=== PATIENT | male | born 1970 | race African-American/Black ===

== ENCOUNTER 2017-10-04 09:52 | Inpatient (IN) | payer OTHER ==
[2017-10-04 10:21] VITALS: BMI 26.6
--- NOTE | 2017-10-04 14:28 | HP ---
CIWA Score - CIWA Score Nausea/Vomitin-No Nausea/No Vomiting Muscle Tremors: 4-Moderate,w/Arms Extend Anxiety: 4-Mod. Anxious/Guarded Agitation: 3 Paroxysmal Sweats: 1-Minimal Palms Moist Orientation: 0-Oriented Tacttile Disturbances: 3-Moderate Itch/Numb/Burn Auditory Disturbances: 0-None Visual Disturbances: 0-None Headache: 1-Very Mild CIWA-Ar Total Score: 16 Admission ROS BHS - HPI Chief Complaint: WITHDRAWAL SX FROM ALCOHOL Allergies/Adverse Reactions: Allergies Allergy/AdvReac Type Severity Reaction Status Date / Time No Known Allergies Allergy Verified 10/04/17 13:27 History of Present Illness: 47 Y/O AA/MALE WITH A HX OF ALCOHOL AND COCAINE DEPENDENCE SEEKING DETOX TX. PT WAS LAST HERE IN 2009. REPORTS HAVE BEEN SOBER FOR 7 YEARS SINCE THEN AND RECENTLY RELAPSED. Exam Limitations: No Limitations - Ebola screening Have you traveled outside of the country in the last 21 days: No Have you had contact with anyone from an Ebola affected area: No Have you been sick,other than usual withdrawal symptoms: No Do you have a fever: No - Review of Systems Constitutional: Chills, Night Sweats, Changes in sleep EENT: reports: Blurred Vision (WEARS GLASSES), Tearing, Nose Congestion, Dental Problems (MISSING TEETH/BILATERAL DENTURES), Other ("SLIGHTLY GLAUCOMA BOTH EYES ".) Respiratory: reports: Shortness of Breath (ASTHMA), Wheezing Cardiac: reports: Lightheadedness, Palpitations GI: reports: Diarrhea, Nausea, Poor Fluid Intake, Vomiting, Abdominal cramping : reports: Frequency Musculoskeletal: reports: Back Pain, Joint Pain, Muscle Pain Integumentary: reports: No Symptoms Reported Neuro: reports: Headache, Numbness (TOES), Tremors, Unsteady Gait, Dizziness Endocrine: reports: No Symptoms Reported Hematology: reports: No Symptoms Reported Psychiatric: reports: Orientated x3, Anxious, Depressed Other Systems: Reviewed and Negative Patient History - Patient Medical History Hx Asthma: Yes (MDI) Hx Chronic Obstructive Pulmonary Disease (COPD): No Hx Cardiac Disorders: No Hx Hypertension: No Hx Hypercholesterolemia: No HX Cerebrovascular Accident: No Hx Seizures: No Hx Diabetes: No Hx Gastrointestinal Disorders: Yes (acid reflux-MAALOX) Hx Genitourinary Disorders: No Hx Sexually Transmitted Disorders: No (DENIES) Hx Renal Disease (ESRD): No Hx Thyroid Disease: No Hx Human Immunodeficiency Virus (HIV): No (NEGATIVE HX) Hx Hepatitis C: No Hx Depression: Yes (ON MEDS) Hx Suicide Attempt: No (DENIES PREVIOUS OR CURRENT S/H/I TODAY.) Hx Bipolar Disorder: No Hx Schizophrenia: No - Patient Surgical History Past Surgical History: Yes Hx Neurologic Surgery: No Hx Cataract Extraction: No Hx Cardiac Surgery: No Hx Lung Surgery: No Hx Breast Surgery: No Hx Breast Biopsy: No Hx Abdominal Surgery: No Hx Appendectomy: No Hx Cholecystectomy: No Hx Genitourinary Surgery: No Hx Orthopedic Surgery: No Other Surgical History: benign tumor removed for the chest Anesthesia Reaction: No - PPD History Previous Implant?: Yes Documented Results: Negative w/o proof Implanted On Prior R Admission?: No PPD to be Administered?: Yes - Reproductive History Patient is a Female of Child Bearing Age (11 -55 yrs old): No (MALE) - Smoking Cessation Smoking history: Current every day smoker Have you smoked in the past 12 months: Yes Aproximately how many cigarettes per day: 20 Hx Chewing Tobacco Use: No Initiated information on smoking cessation: Yes 'Breaking Loose' booklet given: 10/04/17 - Substance & Tx. History Hx Alcohol Use: Yes (VODKA/BEER) Hx Substance Use: Yes (CRACK) Substance Use Type: Alcohol, Cocaine Hx Substance Use Treatment: Yes (LAST TX AT [facility] ) - Substances Abused Crack Route: Smoking Frequency: Daily Amount used: $100 Age of first use: 21 Date of Last Use: 10/03/17 Alcohol-vodka/beer Route: Oral Frequency: Daily Amount used: 3 pts./2-6 pks. Age of first use: 14 Date of Last Use: 10/03/17 Family Disease History - Family Disease History Family Disease History: Diabetes: Mother (), Other: Grandparent ( ), Father () Admission Physical Exam BHS - Vital Signs Vital Signs: Vital Signs - 24 hr 10/04/17 10:20 Temperature 97.2 F L Pulse Rate 99 H Respiratory 18 Rate Blood Pressure 120/78 - Physical General Appearance: Yes: Moderate Distress, Irritable, Anxious HEENTM: Yes: EOMI, Normocephalic, VALERIE, Pharynx Normal Respiratory: Yes: Chest Non-Tender, Lungs Clear, Normal Breath Sounds, No Respiratory Distress Neck: Yes: No masses,lesions,Nodules, Supple, Trachea in good position Breast: Yes: Breast Exam Deferred Cardiology: Yes: Regular Rhythm, Regular Rate, S1, S2 Abdominal: Yes: Normal Bowel Sounds, Non Tender, Flat, Soft Genitourinary: Yes: Other (N/C) Back: Yes: Within Normal Limits Musculoskeletal: Yes: full range of Motion, Gait Steady Extremities: Yes: Normal Range of Motion, Non-Tender Neurological: Yes: conveyor feeder II-XII NML intact, Fully Oriented, Alert, Motor Strength 5/5 Integumentary: Yes: Dry, Warm Lymphatic: Yes: Within Normal Limits - Diagnostic (1) Alcohol dependence with uncomplicated withdrawal Current Visit: Yes Status: Acute (2) Cocaine dependence, uncomplicated Current Visit: Yes Status: Acute (3) Asthma Current Visit: Yes Status: Chronic Qualifiers: Asthma severity: mild Asthma persistence: unspecified Asthma complication type: uncomplicated Qualified Code(s): J45.909 - Unspecified asthma, uncomplicated Cleared for Admission [facility] - Detox or Rehab [facility] Level of Care: Medically Managed Detox Regimen/Protocol: Librium [facility] Breath Alcohol Content Breath Alcohol Content: 0 Urine Drug Screen - Results Drug Screen Negative: No Urine Drug Screen Results: ARTEMIO-Cocaine
[2017-10-04] MEDS ORDERED: ACETAMINOPHEN 325 MG TABLET (FP) PO PRN (14:41)
[2017-10-04] MEDS ORDERED: LOPERAMIDE HCL 2 MG CAPSULE PO PRN (14:41)
[2017-10-04] MEDS ORDERED: MAGNESIUM CITRATE 300 ML BOTTLE PO PRN (14:41)
[2017-10-04] MEDS ORDERED: guaiFENesin/D-METHORPHAN HB 10 ML UNIT-DOSE CUPS PO PRN (14:41)
[2017-10-04] MEDS ORDERED: P-EPHED 60MG/TRIPROLIDI 2.5MG TABLET PO PRN (14:41)
[2017-10-04] MEDS ORDERED: IBUPROFEN 400 MG TABLET (FP) PO PRN (14:41)
[2017-10-04] MEDS ORDERED: hydrOXYzine PAMOATE 50 MG CAPSULE (FP) PO PRN (14:41)
[2017-10-04] MEDS ORDERED: MAG HYDROX/AL HYDROX/SIMETH 30 ML UNIT-DOSE CUP PO PRN (14:41)
[2017-10-04] MEDS ORDERED: MAGNESIUM HYDROX 2400MG/30ML ORAL SUSPENSION 30 ML CUP PO PRN (14:41)
[2017-10-04] MEDS ORDERED: MENTHOL/PHENOL 1 EACH UD MM PRN (14:41)
[2017-10-04] MEDS ORDERED: chlordiazePOXIDE HCL 25 MG CAPSULE PO PRN (14:41)
[2017-10-04] MEDS ORDERED: ALBUTEROL SO4 18 GM HFA INHALER IH PRN (14:44)
[2017-10-04] MEDS ORDERED: chlordiazePOXIDE HCL 25 MG CAPSULE PO ONE (15:00)
[2017-10-04] MEDS: NICOTINE 21 MG/24 HOURS TOPICAL PATCH TD SCH (15:57)
--- NOTE | 2017-10-04 16:15 | CONSULT ---
[facility] Psychiatric Consult - Data Date of interview: 10/04/17 Admission source: [facility] Identifying data: Readmission to [facility] for this 47 y/o AA male seeking detox treatment on for alcohol and cocaine dependence.Patient is single without children,homeless,unemployed and currently supported on Public Assistance. Substance Abuse History: Confirmed by patient in this session.Smoking history: Current every day smoker. Have you smoked in the past 12 months: Yes. Aproximately how many cigarettes per day: 20. Hx Chewing Tobacco Use: No. Initiated information on smoking cessation: Yes. 'Breaking Loose' booklet given : 10/04/17. - Substance & Tx. History. Hx Alcohol Use: Yes (VODKA/BEER). Hx Substance Use: Yes (CRACK). Substance Use Type: Alcohol, Cocaine. Hx Substance Use Treatment: Yes (LAST TX AT [facility] ). - Substances Abused. Crack. Route: Smoking. Frequency: Daily. Amount used: $100. Age of first use: 21. Date of Last Use: 10/03/17. Alcohol-vodka/ beer. Route: Oral. Frequency: Daily. Amount used: 3 pts./2-6 pks. Age of first use: 14. Date of Last Use: 10/03/17 Medical History: Glaucoma (both eyes),bronchial asthma,GERD,chronic back pain and a history of surgery (excision of benign tumor from chest). Psychiatric History: Patient admits to a history of two psychiatric hospitalizations,years ago,at [facility] in [facility].Diagnosed with Paranoid Schizophrenia.Maintained since 2008 on a regimen of remeron,abilify and vistaril.Mr Doherty indicates that he is adherent to his medications (dispensed to patient in past 10 months of incarceration).Doses not recalled.Patient denies history of suicide attempts. Physical/Sexual Abuse/Trauma History: Patient denies history of abuse.Mr Doherty declares that he was released from group home on 09/25/17 after serving a 10 month- sentence. Additional Comment: Urine Drug Screen Results: ARTEMIO-Cocaine.Noted. Mental Status Exam - Mental Status Exam Alert and Oriented to: Time, Place, Person Cognitive Function: Good Patient Appearance: Unkempt, Disheveled (missing front teeth) Mood: Withdrawn Affect: Constricted Patient Behavior: Fatigued, Appropriate, Cooperative Speech Pattern: Clear, Appropriate (good historian) Voice Loudness: Normal Thought Process: Intact, Goal Oriented Thought Disorder: Not Present Hallucinations: Denies Suicidal Ideation: Denies Homicidal Ideation: Denies Insight/Judgement: Poor Sleep: Poorly, Difficulty falling asleep Appetite: Good Muscle strength/Tone: Normal Gait/Station: Normal Psychiatric Findings - Problem List (Reeder 1, 2,3) (1) Alcohol dependence with uncomplicated withdrawal Current Visit: Yes Status: Acute (2) Cocaine dependence, uncomplicated Current Visit: Yes Status: Acute (3) Nicotine dependence Current Visit: Yes Status: Acute (4) Substance induced mood disorder Current Visit: Yes Status: Acute (5) Insomnia Current Visit: Yes Status: Acute (6) Schizophrenia Current Visit: Yes Status: Acute - Initial Treatment Plan Initial Treatment Plan: Psychoeducation provided in this session.Detoxification in progress.Sleep hygiene.Medications : remeron 7.5 mg po hs + abilify 10 mg po daily.Side effects/benefits of both drugs are discussed with the patient.Mr Doherty insists on resuming his medications.Consent (verbal) given.Observation.
[2017-10-04 16:51] LABS: HEMATOCRIT 42.3 % (35.4-49); HEMOGLOBIN 14.3 GM/dL (11.7-16.9); MCH 30.8 pg (25.7-33.7); MCHC 33.8 g/dl (32.0-35.9); MEAN CELL VOLUME 91.1 fl (80-96); MEAN PLT VOLUME 9.4 fl (7.5-11.1); PLATELET COUNT 198 K/MM3 (134-434); RBC 4.64 M/mm3 (4.00-5.60); RDW 13.6 % (11.9-15.9); WHITE BLOOD COUNT 5.9 K/mm3 (4.0-10.0)
[2017-10-04 17:25] LABS: ALBUMIN 3.8 g/dl (3.4-5.0); ANION GAP 7 (8-16); BLOOD UREA NITROGEN 18 mg/dL (7-18); CALCIUM 8.9 mg/dL (8.5-10.1); CHLORIDE 101 mmol/L (98-107); CO2 30 mmol/L (21-32); GLUCOSE,RANDOM 97 mg/dL (74-106); POTASSIUM 4.1 mmol/L (3.5-5.1); SODIUM 138 mmol/L (136-145)
[2017-10-04 17:30] LABS: ALK PHOS 103 U/L (45-117); BILIRUBIN,TOTAL 0.7 mg/dL (0.2-1.0); SGOT/AST 120 U/L (15-37); SGPT/ALT 57 U/L (12-78); TOT PROT 7.1 g/dl (6.4-8.2)
[2017-10-04] MEDS: chlordiazePOXIDE HCL 25 MG CAPSULE PO SCH ×2 (18:00→22:20)
[2017-10-04 18:32] LABS: SICKLE CELL SCREEN NEGATIVE (NEGATIVE)
[2017-10-04] MEDS: MIRTAZAPINE 15 MG TABLET (FP) PO SCH (22:20)
[2017-10-04] MEDS: THIAMINE HCL 100 MG TABLET (FP) PO SCH (22:20)
[2017-10-04 23:10] LABS: URINE APPEARANCE TURBID; URINE BILIRUBIN NEGATIVE (NEGATIVE); URINE BLOOD NEGATIVE (NEGATIVE); URINE COLOR YELLOW; URINE GLUCOSE (UA) 2+ (NEGATIVE); URINE KETONE TRACE (NEGATIVE); URINE LEUK ESTERASE NEGATIVE (NEGATIVE); URINE NITRITE NEGATIVE (NEGATIVE)
[2017-10-04 23:15] LABS: URINE PROTEIN 1+ (NEGATIVE)
[2017-10-04 23:22] LABS: URINE MUCUS FEW
[2017-10-05] MEDS: chlordiazePOXIDE HCL 25 MG CAPSULE PO SCH ×4 (07:37→22:25)
[2017-10-05] MEDS: PRENATAL VITAMINS W/ FOLIC ACID TABLET (FP) PO SCH (10:20)
[2017-10-05] MEDS: ARIPiprazole 10 MG TABLET PO SCH (10:20)
[2017-10-05] MEDS: NICOTINE 21 MG/24 HOURS TOPICAL PATCH TD SCH (10:23)
[2017-10-05] MEDS: NICOTINE POLACRILEX 4 MG GUM BUC PRN (10:24)
--- NOTE | 2017-10-05 10:57 | PN ---
[facility] CIWA - CIWA Score Nausea/Vomitin-No Nausea/No Vomiting Muscle Tremors: 4-Moderate,w/Arms Extend Anxiety: 4-Mod. Anxious/Guarded Agitation: 4-Moderately Restless Paroxysmal Sweats: 1-Minimal Palms Moist Orientation: 0-Oriented Tacttile Disturbances: 3-Moderate Itch/Numb/Burn Auditory Disturbances: 0-None Visual Disturbances: 0-None Headache: 0-None Present CIWA-Ar Total Score: 16 BHS Progress Note (SOAP) Subjective: ANXIETY,SWEATS,TREMORS,FATIGUE. Objective: 10/05/17 10:51 Laboratory Last Values WBC 5.9 K/mm3 (4.0-10.0) 10/04/17 14:30 RBC 4.64 M/mm3 (4.00-5.60) 10/04/17 14:30 Hgb 14.3 GM/dL (11.7-16.9) 10/04/17 14:30 Hct 42.3 % (35.4-49) 10/04/17 14:30 MCV 91.1 fl (80-96) 10/04/17 14:30 MCH 30.8 pg (25.7-33.7) 10/04/17 14:30 MCHC 33.8 g/dl (32.0-35.9) 10/04/17 14:30 RDW 13.6 % (11.9-15.9) 10/04/17 14:30 Plt Count 198 K/MM3 (134-434) 10/04/17 14:30 MPV 9.4 fl (7.5-11.1) 10/04/17 14:30 Sickle Cell Screen Negative (NEGATIVE) 10/04/17 14:30 Sodium 138 mmol/L (136-145) 10/04/17 14:30 Potassium 4.1 mmol/L (3.5-5.1) 10/04/17 14:30 Chloride 101 mmol/L (98-107) 10/04/17 14:30 Carbon Dioxide 30 mmol/L (21-32) 10/04/17 14:30 Anion Gap 7 (8-16) L 10/04/17 14:30 BUN 18 mg/dL (7-18) 10/04/17 14:30 Creatinine 1.0 mg/dL (0.7-1.3) 10/04/17 14:30 Creat Clearance w eGFR > 60 (>60) 10/04/17 14:30 Random Glucose 97 mg/dL (74-106) 10/04/17 14:30 Calcium 8.9 mg/dL (8.5-10.1) 10/04/17 14:30 Total Bilirubin 0.7 mg/dL (0.2-1.0) 10/04/17 14:30 AST 120 U/L (15-37) H 10/04/17 14:30 ALT 57 U/L (12-78) 10/04/17 14:30 Alkaline Phosphatase 103 U/L (45-117) 10/04/17 14:30 Total Protein 7.1 g/dl (6.4-8.2) 10/04/17 14:30 Albumin 3.8 g/dl (3.4-5.0) 10/04/17 14:30 Urine Color Yellow 10/04/17 22:10 Urine Appearance Turbid 10/04/17 22:10 Urine pH 5.0 (5.0-8.0) 10/04/17 22:10 Ur Specific [place] 1.030 (1.001-1.035) 10/04/17 22:10 Urine Protein 1+ (NEGATIVE) H 10/04/17 22:10 Urine Glucose (UA) 2+ (NEGATIVE) H 10/04/17 22:10 Urine Ketones Trace (NEGATIVE) H 10/04/17 22:10 Urine Blood Negative (NEGATIVE) 10/04/17 22:10 Urine Nitrite Negative (NEGATIVE) 10/04/17 22:10 Urine Bilirubin Negative (NEGATIVE) 10/04/17 22:10 Urine Urobilinogen 2.0 mg/dL (0.2-1.0) 10/04/17 22:10 Ur Leukocyte Esterase Negative (NEGATIVE) 10/04/17 22:10 Urine WBC (Auto) 172 /hpf (3-5) 10/04/17 22:10 Urine RBC (Auto) 5 /hpf (0-3) 10/04/17 22:10 Urine Mucus Few 10/04/17 22:10 URINE WBC NOTED 172 Vital Signs 10/05/17 10/05/17 10/05/17 03:30 06:16 09:30 Temperature 98.5 F 98.2 F Pulse Rate 76 95 H Respiratory 18 18 18 Rate Blood Pressure 112/63 92/72 Assessment: 10/05/17 10:52 WITHDRAWAL SX LEUCOCYTURIA R/O UTI Plan: CONTINUE DETOX INCREASE PO FLUIDS REPEAT UA;UC TODAY
--- NOTE | 2017-10-05 11:54 | EKG ---
Test Reason : Blood Pressure : / mmHG Vent. Rate : 093 BPM Atrial Rate : 093 BPM P-R Int : 118 ms QRS Dur : 082 ms QT Int : 394 ms P-R-T Axes : 073 -29 003 degrees QTc Int : 489 ms NORMAL SINUS RHYTHM PROLONGED QT ABNORMAL ECG NO PREVIOUS ECGS AVAILABLE Confirmed by DWAYNE PINEDO, HINA ([id number]) on 10/05/2017 11:54:31 AM Referred By: Confirmed By:HINA RICE MD
[2017-10-05] MEDS: MIRTAZAPINE 15 MG TABLET (FP) PO SCH (22:25)
[2017-10-05] MEDS: THIAMINE HCL 100 MG TABLET (FP) PO SCH (22:25)
[2017-10-06] MEDS: chlordiazePOXIDE HCL 25 MG CAPSULE PO SCH ×2 (05:54→10:24)
[2017-10-06 09:56] LABS: URINE APPEARANCE CLEAR; URINE BILIRUBIN NEGATIVE (NEGATIVE); URINE BLOOD NEGATIVE (NEGATIVE); URINE COLOR YELLOW; URINE GLUCOSE (UA) NEGATIVE (NEGATIVE); URINE KETONE NEGATIVE (NEGATIVE); URINE LEUK ESTERASE NEGATIVE (NEGATIVE); URINE NITRITE NEGATIVE (NEGATIVE); URINE PROTEIN NEGATIVE (NEGATIVE); URINE UROBILINOGEN 4.0 E.U/dl mg/dL (0.2-1.0)
[2017-10-06] MEDS: ARIPiprazole 10 MG TABLET PO SCH (10:23)
[2017-10-06] MEDS: PRENATAL VITAMINS W/ FOLIC ACID TABLET (FP) PO SCH (10:23)
[2017-10-06] MEDS: NICOTINE 21 MG/24 HOURS TOPICAL PATCH TD SCH (10:24)
--- NOTE | 2017-10-06 11:53 | PN ---
[facility] CIWA - CIWA Score Nausea/Vomitin-No Nausea/No Vomiting Muscle Tremors: 4-Moderate,w/Arms Extend Anxiety: 4-Mod. Anxious/Guarded Agitation: 4-Moderately Restless Paroxysmal Sweats: 1-Minimal Palms Moist Orientation: 0-Oriented Tacttile Disturbances: 3-Moderate Itch/Numb/Burn Auditory Disturbances: 0-None Visual Disturbances: 0-None Headache: 0-None Present CIWA-Ar Total Score: 16 BHS Progress Note (SOAP) Subjective: SLIGHT ANXIETY,SWEATS. Objective: 10/06/17 11:50 Vital Signs Temperature 97.7 F 10/06/17 09:32 Pulse Rate 96 H 10/06/17 09:32 Respiratory Rate 19 10/06/17 09:32 Blood Pressure 102/77 10/06/17 09:32 O2 Sat by Pulse Oximetry (%) Laboratory Last Values WBC 5.9 K/mm3 (4.0-10.0) 10/04/17 14:30 RBC 4.64 M/mm3 (4.00-5.60) 10/04/17 14:30 Hgb 14.3 GM/dL (11.7-16.9) 10/04/17 14:30 Hct 42.3 % (35.4-49) 10/04/17 14:30 MCV 91.1 fl (80-96) 10/04/17 14:30 MCH 30.8 pg (25.7-33.7) 10/04/17 14:30 MCHC 33.8 g/dl (32.0-35.9) 10/04/17 14:30 RDW 13.6 % (11.9-15.9) 10/04/17 14:30 Plt Count 198 K/MM3 (134-434) 10/04/17 14:30 MPV 9.4 fl (7.5-11.1) 10/04/17 14:30 Sickle Cell Screen Negative (NEGATIVE) 10/04/17 14:30 Sodium 138 mmol/L (136-145) 10/04/17 14:30 Potassium 4.1 mmol/L (3.5-5.1) 10/04/17 14:30 Chloride 101 mmol/L (98-107) 10/04/17 14:30 Carbon Dioxide 30 mmol/L (21-32) 10/04/17 14:30 Anion Gap 7 (8-16) L 10/04/17 14:30 BUN 18 mg/dL (7-18) 10/04/17 14:30 Creatinine 1.0 mg/dL (0.7-1.3) 10/04/17 14:30 Creat Clearance w eGFR > 60 (>60) 10/04/17 14:30 Random Glucose 97 mg/dL (74-106) 10/04/17 14:30 Calcium 8.9 mg/dL (8.5-10.1) 10/04/17 14:30 Total Bilirubin 0.7 mg/dL (0.2-1.0) 10/04/17 14:30 AST 120 U/L (15-37) H 10/04/17 14:30 ALT 57 U/L (12-78) 10/04/17 14:30 Alkaline Phosphatase 103 U/L (45-117) 10/04/17 14:30 Total Protein 7.1 g/dl (6.4-8.2) 10/04/17 14:30 Albumin 3.8 g/dl (3.4-5.0) 10/04/17 14:30 Urine Color Yellow 10/06/17 08:00 Urine Appearance Clear 10/06/17 08:00 Urine pH 6.0 (5.0-8.0) 10/06/17 08:00 Ur Specific [place] 1.026 (1.001-1.035) 10/06/17 08:00 Urine Protein Negative (NEGATIVE) 10/06/17 08:00 Urine Glucose (UA) Negative (NEGATIVE) 10/06/17 08:00 Urine Ketones Negative (NEGATIVE) 10/06/17 08:00 Urine Blood Negative (NEGATIVE) 10/06/17 08:00 Urine Nitrite Negative (NEGATIVE) 10/06/17 08:00 Urine Bilirubin Negative (NEGATIVE) 10/06/17 08:00 Urine Urobilinogen 4.0 e.u/dl mg/dL (0.2-1.0) 10/06/17 08:00 Ur Leukocyte Esterase Negative (NEGATIVE) 10/06/17 08:00 Urine WBC (Auto) 172 /hpf (3-5) 10/04/17 22:10 Urine RBC (Auto) 5 /hpf (0-3) 10/04/17 22:10 Urine Mucus Few 10/04/17 22:10 RPR Titer Nonreactive (NONREACTIVE) 10/04/17 14:30 HIV 1&2 Antibody Screen Negative 10/04/17 14:30 HIV P24 Antigen Negative 10/04/17 14:30 REPEAT UA WNL ;UC PENDING Assessment: 10/06/17 11:50 WITHDRAWAL SX Plan: CONTINUE DETOX
[2017-10-06] MEDS: chlordiazePOXIDE 5 MG CAPSULE PO SCH ×2 (17:43→22:20)
[2017-10-06] MEDS: THIAMINE HCL 100 MG TABLET (FP) PO SCH (22:20)
[2017-10-06] MEDS: MIRTAZAPINE 15 MG TABLET (FP) PO SCH (22:22)
[2017-10-07] MEDS: chlordiazePOXIDE 5 MG CAPSULE PO SCH ×2 (06:01→10:25)
[2017-10-07] MEDS: NICOTINE 21 MG/24 HOURS TOPICAL PATCH TD SCH (10:25)
[2017-10-07] MEDS: PRENATAL VITAMINS W/ FOLIC ACID TABLET (FP) PO SCH (10:25)
[2017-10-07] MEDS: ARIPiprazole 10 MG TABLET PO SCH (10:26)
[2017-10-07] MEDS: NICOTINE POLACRILEX 4 MG GUM BUC PRN (10:27)
--- NOTE | 2017-10-07 15:28 | PN ---
S Progress Note (SOAP) Subjective: Anxious, Diarrhea. Objective: PT. A & O X 3, OBSERVED AMBULATING ON UNIT. NO ACUTE DISTRESS. 10/07/17 15:27 Vital Signs Temperature 98.7 F 10/07/17 14:13 Pulse Rate 96 H 10/07/17 14:13 Respiratory Rate 18 10/07/17 14:13 Blood Pressure 112/78 10/07/17 14:13 O2 Sat by Pulse Oximetry (%) Laboratory Tests 10/04/17 10/04/17 10/04/17 14:30 14:30 14:30 WBC 5.9 RBC 4.64 Hgb 14.3 Hct 42.3 MCV 91.1 MCH 30.8 MCHC 33.8 RDW 13.6 Plt Count 198 MPV 9.4 Sickle Cell Screen Negative Sodium 138 Potassium 4.1 Chloride 101 Carbon Dioxide 30 Anion Gap 7 L BUN 18 Creatinine 1.0 Creat Clearance w eGFR > 60 Random Glucose 97 Calcium 8.9 Total Bilirubin 0.7 AST 120 H ALT 57 Alkaline Phosphatase 103 Total Protein 7.1 Albumin 3.8 Urine Color Urine Appearance Urine pH Ur Specific [place] Urine Protein Urine Glucose (UA) Urine Ketones Urine Blood Urine Nitrite Urine Bilirubin Urine Urobilinogen Ur Leukocyte Esterase Urine WBC (Auto) Urine RBC (Auto) Urine Mucus RPR Titer HIV 1&2 Antibody Screen Negative HIV P24 Antigen Negative 10/04/17 10/04/17 10/06/17 14:30 22:10 08:00 WBC RBC Hgb Hct MCV MCH MCHC RDW Plt Count MPV Sickle Cell Screen Sodium Potassium Chloride Carbon Dioxide Anion Gap BUN Creatinine Creat Clearance w eGFR Random Glucose Calcium Total Bilirubin AST ALT Alkaline Phosphatase Total Protein Albumin Urine Color Yellow Yellow Urine Appearance Turbid Clear Urine pH 5.0 6.0 Ur Specific [place] 1.030 1.026 Urine Protein 1+ H Negative Urine Glucose (UA) 2+ H Negative Urine Ketones Trace H Negative Urine Blood Negative Negative Urine Nitrite Negative Negative Urine Bilirubin Negative Negative Urine Urobilinogen 2.0 4.0 e.u/dl Ur Leukocyte Esterase Negative Negative Urine WBC (Auto) 172 Urine RBC (Auto) 5 Urine Mucus Few RPR Titer Nonreactive HIV 1&2 Antibody Screen HIV P24 Antigen LABS NOTED. RESULTS OF REPEAT UA NOTED. NO NEED FOR FURTHER ACTION AT THIS TIME. 10/07/17 15:27 Assessment: 02/17/18 15:27 WITHDRAWAL SYMPTOMS. Plan: CONTINUE DETOX. INCREASE DAILY PO FLUID INTAKE.
[2017-10-07] MEDS: chlordiazePOXIDE HCL 10 MG CAPSULE PO SCH ×2 (16:43→22:19)
[2017-10-07] MEDS: MIRTAZAPINE 15 MG TABLET (FP) PO SCH (22:18)
[2017-10-07] MEDS: THIAMINE HCL 100 MG TABLET (FP) PO SCH (22:19)
--- NOTE | 2017-10-07 22:44 | PN ---
S Progress Note Note: ASKED TO SEE PT FOR SWOLLEN LIP. CLIENT REPORTS HIS LIP IS SWOLLEN FROM TAKING LIBRIUM. STATES IT STARTED ON ADMISSION AND THOUGHT IT WOULD DISAPPEAR. C/O TINGLING SENSATON. DENIES SOB, HIVES, PRURITUS Last Vital Signs Temp Pulse Resp BP Pulse Ox 98.2 F 83 2 L 116/81 10/07/17 21:06 10/07/17 21:06 10/07/17 21:06 10/07/17 21:06 PER RN 02 SAT 98% RA CLIENT SEEN OOB AMBUALTING A/O X3 NAD LIPS NOTED WITH FLUID FILLED BLISTERS SOME INTACT AND SOME OPEN BLISTERS. SKIN NO RASH NOTED ELSE WHERE LUNGS CTAB ORAL HERPES P- TYLENOL/ MOTRIN FOR PAIN START VALACYCLOVIR 2G PO X 12 HR X 24 ENCOURAGE HAND WASHING
[2017-10-07] MEDS ORDERED: diphenhydrAMINE HCL 25 MG CAPSULE (FP) PO ONE (23:00)
[2017-10-07] MEDS: valACYclovir HCL 500 MG TABLET (FP) PO SCH (23:22)
[2017-10-08] MEDS: chlordiazePOXIDE HCL 10 MG CAPSULE PO SCH ×2 (05:51→11:11)
[2017-10-08 09:12] VITALS: BP 109/74; PULSE 90; TEMP 97.7
[2017-10-08] MEDS: PRENATAL VITAMINS W/ FOLIC ACID TABLET (FP) PO SCH (09:15)
[2017-10-08] MEDS: ARIPiprazole 10 MG TABLET PO SCH (09:15)
[2017-10-08] MEDS: valACYclovir HCL 500 MG TABLET (FP) PO SCH (09:15)
--- NOTE | 2017-10-08 09:36 | DS ---
[facility] Detox Discharge Summary Admission Date: 10/04/17 Discharge Date: 10/08/17 - History Present History: Alcohol Dependence, Cocaine Dependence Additional Comments: follow up with pmd and after care program as arrangement,encourage oral fluid Pertinent Past History: asthma gerd r/o uti r/ooral herpes - Physical Exam Results Vital Signs: Vital Signs Temperature 97.7 F 10/08/17 09:11 Pulse Rate 90 10/08/17 09:11 Respiratory Rate 20 10/08/17 09:11 Blood Pressure 109/74 10/08/17 09:11 O2 Sat by Pulse Oximetry (%) Pertinent Admission Physical Exam Findings: withdrawl signs and symptom - Treatment Hospital Course: Detox Protocol Followed, Detoxed Safely, Responded well, Discharged Condition Good, Rehab Referral Accepted Patient has Accepted a Rehab Referral to: [facility] - Medication Discharge Medications: Ambulatory Orders Albuterol Sulfate Inhaler - [Ventolin Hfa Inhaler -] 2 inh PO Q4H PRN 10/04/17 Aripiprazole [Abilify -] 10 mg PO DAILY 10/04/17 hydrOXYzine PAMOATE [Vistaril -] 50 mg PO HS 10/04/17 - Diagnosis (1) Alcohol dependence with uncomplicated withdrawal Current Visit: Yes Status: Acute (2) Cocaine dependence, uncomplicated Current Visit: Yes Status: Acute (3) Insomnia Current Visit: Yes Status: Acute (4) Nicotine dependence Current Visit: Yes Status: Acute (5) Schizophrenia Current Visit: Yes Status: Acute (6) Substance induced mood disorder Current Visit: Yes Status: Acute (7) Asthma Current Visit: Yes Status: Chronic Qualifiers: Asthma severity: mild Asthma persistence: unspecified Asthma complication type: uncomplicated Qualified Code(s): J45.909 - Unspecified asthma, uncomplicated (8) UTI (urinary tract infection) Current Visit: Yes Status: Acute (9) Oral herpes Current Visit: Yes Status: Acute - AMA Did Patient Leave Against Medical Advice: No
[2017-10-08] MEDS: NICOTINE 21 MG/24 HOURS TOPICAL PATCH TD SCH (09:59)
== END 2017-10-08 10:25 | disposition home or self-care (01) | DRG 774 ==
LOC: EDBD 09:52 → YASAS 09:52 → Y3N 14:07
PROVIDERS: ADMIT Internal Medicine; ATTEND Internal Medicine
PROC: HZ2ZZZZ Detoxification Services for Substance Abuse Treatment (ICD-10-PCS; principal; 2017-10-04)
DX: F10.230 Alcohol dependence with withdrawal, uncomplicated (principal); F14.20 Cocaine dependence, uncomplicated; F17.210 Nicotine dependence, cigarettes, uncomplicated; F20.9 Schizophrenia, unspecified; F19.24 Other psychoactive substance dependence with psychoactive substance-induced mood disorder; G47.00 Insomnia, unspecified; J45.909 Unspecified asthma, uncomplicated; N39.0 Urinary tract infection, site not specified; B00.1 Herpesviral vesicular dermatitis; H40.9 Unspecified glaucoma; K21.9 Gastro-esophageal reflux disease without esophagitis
CPT/HCPCS: 36415; 80053; 81003; 81015; 85027; 85660; 86593; 87086; 87389; 93005; 93010

== ENCOUNTER 2020-03-25 12:09 | Inpatient (IN) | payer OTHER ==
--- NOTE | 2020-03-25 12:32 | BHS.RME ---
Substance Use & Tx History - Substance Use History Alcohol Substance amount: 1 pint vodka Frequency of use: Daily Substance route: Oral Date of Last Use: 03/25/20 Cocaine- Powder Substance amount: $300 Frequency of use: Daily Substance route: Smoking Date of Last Use: 03/25/20 Physical/Psych/Mental Status - Behavior General Behavior: Increased activity (restlessness, agitation) Eye Contact: Normal - Cooperativeness Cooperativeness: Cooperative - Thinking Thought Processes: Tight, Logical, Goal Directed - Physical Health Problems Is patient presently having any pain?: No Does patient presently have any injuries (include location): No Does patient currently have a fever: No Is patient : No CIWA Nausea/Vomitin-No Nausea/No Vomiting Muscle Tremors: 3 Anxiety: 4-Mod. Anxious/Guarded Agitation: 4-Moderately Restless Paroxysmal Sweats: 1-Minimal Palms Moist Orientation: 1-Uncertain about Date Tacttile Disturbances: 0-None Auditory Disturbances: 0-None Visual Disturbances: 1-Very Mild Sensitivity Headache: 1-Very Mild CIWA-Ar Total Score: 15
--- NOTE | 2020-03-25 14:47 | HP ---
CIWA Score Nausea/Vomitin-No Nausea/No Vomiting Muscle Tremors: 3 Anxiety: 4-Mod. Anxious/Guarded Agitation: 4-Moderately Restless Paroxysmal Sweats: 1-Minimal Palms Moist Orientation: 1-Uncertain about Date Tacttile Disturbances: 0-None Auditory Disturbances: 0-None Visual Disturbances: 1-Very Mild Sensitivity Headache: 1-Very Mild CIWA-Ar Total Score: 15 - Admission Criteria [facility] Guidelines: Admission for Medically Managed Detox: Requires at least one of the followin. CIWA greater than 12 2. Seizures within the past 24 hours 3. Delirium tremens within the past 24 hours 4. Hallucinations within the past 24 hours 5. Acute intervention needed for co occurring medical disorder 6. Acute intervention needed for co occurring psychiatric disorder 7. Severe withdrawal that cannot be handled at a lower level of care (continued vomiting, continued diarrhea, abnormal vital signs) requiring intravenous medication and/or fluids 8. Admitting History and Physical - Admission History of Present Illness: Patient is a 59 year old male with history of asthma, alcohol use disorder, cocaine dependence, presents for detox. Last detox 12/06/17- 12/08/17 where patient left AMA. PMH: asthma PSH: bone spur left shoulder, right inguinal hernia Social: lives in apartment in [place], with roommate Psych: depression, schizophrernia (abilify, remeron, vistat) Legal: denies - Substance Use History Alcohol Substance amount: 1 pint vodka (admits blackout in 12/2019, admits eye opner. Denies seizure) Frequency of use: Daily Substance route: Oral Date of Last Use: 03/25/20 (first use at 15 years old) Cocaine- Powder Substance amount: $300 Frequency of use: Daily Substance route: Smoking Date of Last Use: 03/25/20 (first use at 21 years old) History Source: Patient Limitations to Obtaining History: No Limitations - Past Medical History Pulmonary: Yes: Asthma - Smoking History Smoking history: Current every day smoker Have you smoked in the past 12 months: Yes Aproximately how many cigarettes per day: 5 - Alcohol/Substance Use Hx Alcohol Use: Yes (VODKA/BEER) Admission ROS BHS - HPI Allergies/Adverse Reactions: Allergies Allergy/AdvReac Type Severity Reaction Status Date / Time No Known Allergies Allergy Verified 10/04/17 13:27 Exam Limitations: No Limitations - Ebola screening Have you traveled outside of the country in the last 21 days: No Have you been sick,other than usual withdrawal symptoms: No Do you have a fever: No - Review of Systems Constitutional: No Symptoms Reported EENT: denies: Blurred Vision, Hearing Loss Respiratory: denies: Cough, Shortness of Breath Cardiac: denies: Chest Pain, Palpitations GI: denies: Nausea, Vomiting, Abdominal cramping : denies: Burning, Dysuria Musculoskeletal: denies: Back Pain, Joint Pain Integumentary: denies: Change in Color, Rash Neuro: reports: Headache. denies: Numbness, Tremors Hematology: denies: Blood Clots, Easy Bleeding Psychiatric: reports: Agitated (denies suicidal, homicidal ideation), Depressed Patient History - Patient Medical History Hx Anemia: No Hx Asthma: Yes (MDI) Hx Chronic Obstructive Pulmonary Disease (COPD): No Hx Cancer: No Hx Cardiac Disorders: No Hx Congestive Heart Failure: No Hx Hypertension: No Hx Hypercholesterolemia: No Hx Pacemaker: No HX Cerebrovascular Accident: No Hx Seizures: No Hx Dementia: No Hx Diabetes: No Hx Gastrointestinal Disorders: Yes (GERD) Hx Liver Disease: No Hx Genitourinary Disorders: No Hx Sexually Transmitted Disorders: No (DENIES) Hx Renal Disease (ESRD): No Hx Thyroid Disease: No Hx Human Immunodeficiency Virus (HIV): No (NEGATIVE HX) Hx Hepatitis C: No Hx Depression: Yes (ON MEDS) Hx Suicide Attempt: No (DENIES PREVIOUS OR CURRENT S/H/I TODAY.) Hx Bipolar Disorder: No Hx Schizophrenia: No - Patient Surgical History Past Surgical History: Yes Hx Neurologic Surgery: No Hx Cataract Extraction: No Hx Cardiac Surgery: No Hx Lung Surgery: No Hx Breast Surgery: No Hx Breast Biopsy: No Hx Abdominal Surgery: No Hx Appendectomy: No Hx Cholecystectomy: No Hx Genitourinary Surgery: No Hx Section: No Hx Orthopedic Surgery: No Other Surgical History: benign tumor removed for the chest 1980s, right inguinal hernia repair 1999 Anesthesia Reaction: No - PPD History Date: 10/06/17 Results: 0 mm - Smoking Cessation Smoking history: Current every day smoker Have you smoked in the past 12 months: Yes Aproximately how many cigarettes per day: 20 Hx Chewing Tobacco Use: No Initiated information on smoking cessation: Yes 'Breaking Loose' booklet given: 03/25/20 - Substances abused Alcohol Substance route: Oral Frequency: Daily Amount used: 1 pint eleanor, daily Age of first use: 15 Date of last use: 03/25/20 Cocaine Substance route: Inhalation Frequency: Daily Amount used: $300, daily Age of first use: 21 Date of last use: 03/25/20 Admission Physical Exam [facility] - Physical General Appearance: Yes: No Apparent Distress HEENTM: Yes: EOMI, Normocephalic, VALERIE Respiratory: Yes: Lungs Clear, No Respiratory Distress, No Accessory Muscle Use Neck: Yes: Supple Cardiology: Yes: Regular Rhythm, Regular Rate, S1, S2 Abdominal: Yes: Normal Bowel Sounds, Non Tender, Flat, Soft Musculoskeletal: Yes: Within Normal Limits, full range of Motion Extremities: Yes: Within Normal Limits, Normal Range of Motion Neurological: Yes: Alert, Motor Strength 5/5, Normal Mood/Affect Integumentary: Yes: Dry, Warm - Diagnostic (1) Cocaine dependence Current Visit: Yes Status: Acute (2) Alcohol dependence with uncomplicated withdrawal Current Visit: Yes Status: Acute (3) Asthma Current Visit: No Status: Chronic Qualifiers: Asthma severity: mild Asthma persistence: unspecified Asthma complication type: unspecified (4) Nicotine dependence Current Visit: No Status: Chronic Qualifiers: Substance use status: unspecified nicotine-induced disorder Cleared for Admission [facility] - Detox or Rehab [facility] Level of Care: Medically Managed Detox Regimen/Protocol: Librium Claeared for Rehab Admission: No Screened but not Admitted - Documentation of Visit Screened but not Admitted: No Breathalyzer - Breathalyzer Breathalyzer: 0 Urine Drug Screen - Test Device Lot number: [id number] Expiration date: 03/24/22 - Control Is test valid?: Yes - Results Drug screen NEGATIVE: No Urine drug screen results: ARTEMIO-Cocaine Inpatient Rehab Admission - Rehab Decision to Admit Inpatient rehab admission?: No
[2020-03-25] MEDS ORDERED: chlordiazePOXIDE HCL 25 MG CAPSULE PO PRN (14:54)
[2020-03-25] MEDS ORDERED: MAGNESIUM HYDROX 2400MG/30ML ORAL SUSPENSION 30 ML CUP PO PRN (14:54)
[2020-03-25] MEDS ORDERED: IBUPROFEN 400 MG TABLET (FP) PO PRN (14:54)
[2020-03-25] MEDS ORDERED: MAG HYDROX/AL HYDROX/SIMETH 30 ML UNIT-DOSE CUP PO PRN (14:54)
[2020-03-25] MEDS ORDERED: BISMUTH SUBSALICYLATE 524 MG/30 ML UD PO PRN (14:54)
[2020-03-25] MEDS ORDERED: METHOCARBAMOL 500 MG TABLET PO PRN (14:54)
[2020-03-25] MEDS ORDERED: MENTHOL/PHENOL 1 EACH UD MM PRN (14:54)
[2020-03-25] MEDS ORDERED: ONDANSETRON *ODT* 4 MG TABLET SL PRN (14:54)
[2020-03-25] MEDS ORDERED: ACETAMINOPHEN 325 MG TABLET (FP) PO PRN ×2 (14:54)
[2020-03-25] MEDS ORDERED: MAGNESIUM CITRATE 300 ML BOTTLE PO PRN (14:54)
[2020-03-25] MEDS ORDERED: ALBUTEROL SO4 HFA INHALER IH PRN (14:56)
[2020-03-25 15:37] VITALS: BMI 23.6
[2020-03-25] MEDS: chlordiazePOXIDE HCL 25 MG CAPSULE PO SCH ×2 (16:46→22:29)
[2020-03-25] MEDS: NICOTINE 21 MG/24 HOURS TOPICAL PATCH TD SCH (16:46)
[2020-03-25] MEDS: hydrOXYzine PAMOATE 25 MG CAPSULE (FP) PO SCH ×2 (17:38→22:29)
[2020-03-25 17:47] LABS: HEMATOCRIT 43.4 % (35.4-49); HEMOGLOBIN 14.6 GM/dL (11.7-16.9); MCH 31.5 pg (25.7-33.7); MCHC 33.6 g/dl (32.0-35.9); MEAN CELL VOLUME 93.8 fl (80-96); MEAN PLT VOLUME 9.3 fl (7.5-11.1); PLATELET COUNT 206 K/MM3 (134-434); RBC 4.62 M/mm3 (4.00-5.60); RDW 14.4 % (11.9-15.9); WHITE BLOOD COUNT 4.9 K/mm3 (4.0-10.0)
[2020-03-25 18:03] LABS: ALBUMIN 3.4 g/dl (3.4-5.0); BILIRUBIN,TOTAL 0.5 mg/dL (0.2-1); BLOOD UREA NITROGEN 16.5 mg/dL (7-18); CALCIUM 9.1 mg/dL (8.5-10.1); CREATININE 1.1 mg/dL (0.55-1.3); POTASSIUM 4.1 mmol/L (3.5-5.1); TOT PROT 6.9 g/dl (6.4-8.2)
[2020-03-25] MEDS: THIAMINE HCL 100 MG TABLET (FP) PO SCH (22:29)
[2020-03-25] MEDS: MELATONIN 5 MG TABLETS PO SCH (22:30)
[2020-03-26] MEDS: chlordiazePOXIDE HCL 25 MG CAPSULE PO SCH ×4 (05:34→22:32)
[2020-03-26] MEDS: hydrOXYzine PAMOATE 25 MG CAPSULE (FP) PO SCH ×5 (05:35→22:32)
[2020-03-26] MEDS: PRENATAL VITAMINS W/ FOLIC ACID TABLET (FP) PO SCH (10:14)
[2020-03-26] MEDS: NICOTINE 21 MG/24 HOURS TOPICAL PATCH TD SCH (10:14)
--- NOTE | 2020-03-26 11:50 | PN ---
S CIWA - CIWA Score Nausea/Vomitin-Mild Nausea/No Vomiting Muscle Tremors: 3 Anxiety: 2 Agitation: 1-Slight > Activity Paroxysmal Sweats: 1-Minimal Palms Moist Orientation: 0-Oriented Tacttile Disturbances: 0-None Auditory Disturbances: 0-None Visual Disturbances: 2-Mild Sensitivity Headache: 2-Mild CIWA-Ar Total Score: 12 BHS Progress Note (SOAP) Subjective: 59 years old male admitted on 03/25/20 for alcohol withdrawal sx management treating with librium detox regiment feeling ok today ate breakfast tolerated food well bmi 23.6 initiate ensure 120 ml po tid with meals Objective: 03/26/20 11:51 Vital Signs - 24 hr 03/25/20 03/25/20 03/25/20 15:35 16:17 20:48 Temperature 98.1 F 97.3 F L 97.3 F L Pulse Rate 88 85 74 Respiratory 18 18 18 Rate Blood Pressure 124/82 128/92 118/76 O2 Sat by Pulse 98 Oximetry (%) 03/26/20 03/26/20 06:15 08:53 Temperature 97.1 F L 97.3 F L Pulse Rate 72 73 Respiratory 18 18 Rate Blood Pressure 126/90 126/82 O2 Sat by Pulse 100 Oximetry (%) Laboratory Tests 03/25/20 03/25/20 03/25/20 14:50 14:50 14:50 WBC 4.9 RBC 4.62 Hgb 14.6 Hct 43.4 MCV 93.8 MCH 31.5 MCHC 33.6 RDW 14.4 Plt Count 206 MPV 9.3 D Sodium 140 Potassium 4.1 Chloride 106 Carbon Dioxide 28 Anion Gap 7 L BUN 16.5 Creatinine 1.1 Est GFR (CKD-EPI)AfAm 84.71 Est GFR (CKD-EPI)NonAf 73.09 Random Glucose 103 Calcium 9.1 Total Bilirubin 0.5 AST 31 ALT 23 Alkaline Phosphatase 86 Total Protein 6.9 Albumin 3.4 Syphilis Serology Non-reactive covid pending Assessment: 03/26/20 11:51 alcohol withdrawal Plan: librium regiment
[2020-03-26] MEDS: THIAMINE HCL 100 MG TABLET (FP) PO SCH (22:33)
[2020-03-26] MEDS: MELATONIN 5 MG TABLETS PO SCH (22:33)
[2020-03-27] MEDS: chlordiazePOXIDE HCL 25 MG CAPSULE PO SCH ×4 (06:06→22:29)
[2020-03-27] MEDS: hydrOXYzine PAMOATE 25 MG CAPSULE (FP) PO SCH ×5 (06:06→22:29)
[2020-03-27] MEDS: NICOTINE POLACRILEX 2 MG GUM BUC PRN (06:08)
--- NOTE | 2020-03-27 09:57 | PN ---
[facility] CIWA - CIWA Score Nausea/Vomitin-No Nausea/No Vomiting Muscle Tremors: None Anxiety: 0-No Anxiety, at Ease Agitation: 0-Normal Activity Paroxysmal Sweats: 1-Minimal Palms Moist Orientation: 0-Oriented Tacttile Disturbances: 0-None Auditory Disturbances: 2-Mild Harshness/Frighten Visual Disturbances: 1-Very Mild Sensitivity Headache: 0-None Present CIWA-Ar Total Score: 4 S Progress Note (SOAP) Subjective: Mr. Doherty is doing well. Reports some diaphoresis, agitation, and visual/auditory sensitivity but otherwise ok. Objective: 03/27/20 09:53 Physical General Appearance: Yes: No Apparent Distress HEENTM: Hearing grossly Normal, Normocephalic, Normal Voice Respiratory: No Accessory Muscle Use Neck: Supple Musculoskeletal: Within Normal Limits Extremities: Normal Range of Motion Neurological: Alert, Motor Strength 5/5, Normal Response Integumentary: Dry, Warm Laboratory Results - last 24 hr 03/25/20 03/26/20 16:00 09:00 COVID-19 (SANDY) Not detected HIV Ag/Ab Combo Qual Negative Home Medication List Medication Instructions Recorded Confirmed Type hydrOXYzine PAMOATE [Vistaril -] 50 mg PO HS 12/06/17 03/25/20 History Albuterol Sulfate Inhaler - 2 inh PO Q4H PRN 03/25/20 03/25/20 History [Ventolin Hfa Inhaler -] Active Medications Generic Name Dose Route Start Last Admin Trade Name Freq PRN Reason Stop Dose Admin Acetaminophen 650 mg 03/25/20 14:54 Tylenol - PO Q6H PRN PAIN LEVEL 4 - 6 Acetaminophen 650 mg 03/25/20 14:54 Tylenol - PO Q6H PRN FEVER Al Hydroxide/Mg Hydroxide 30 ml 03/25/20 14:54 Mylanta Oral Suspension - PO Q6H PRN DYSPEPSIA Albuterol Sulfate 2 puff 03/25/20 14:56 Ventolin Hfa Inhaler - IH Q4H PRN ASTHMA Bismuth Subsalicylate 524 mg 03/25/20 14:54 Pepto-Bismol - PO Q1H PRN DIARRHEA Chlordiazepoxide HCl 25 mg 03/27/20 05:00 03/27/20 06:06 Librium - PO 03/27/20 23:01 25 mg [id number] ROSANNE Administration Chlordiazepoxide HCl 25 mg 03/25/20 14:54 Librium - PO 03/27/20 23:59 Q4H PRN WITHDRAWAL(CONT SUBST) Chlordiazepoxide HCl 10 mg 03/28/20 05:00 Librium - PO 03/28/20 23:01 [id number] ROSANNE Chlordiazepoxide HCl 10 mg 03/29/20 05:00 Librium - PO 03/29/20 17:01 Q12H ROSANNE Chlordiazepoxide HCl 10 mg 03/28/20 00:00 Librium - PO 03/29/20 00:00 Q4H PRN WITHDRAWAL(CONT SUBST) Chlordiazepoxide HCl 10 mg 03/30/20 05:00 Librium - PO 03/30/20 05:01 ONCE@0500 ONE Eucalyptus/Menthol/Phenol/Sorbitol 1 each 03/25/20 14:54 Cepastat Lozenge - MM 03/31/20 14:54 Q4H PRN SORE THROAT Hydroxyzine Pamoate 25 mg 03/25/20 18:00 03/27/20 06:06 Vistaril - PO 03/31/20 14:54 25 mg Q4HWA ROSANNE Administration Ibuprofen 400 mg 03/25/20 14:54 Motrin - PO Q6H PRN PAIN LEVEL 1 - 3 Magnesium Citrate 300 ml 03/25/20 14:54 Citroma - PO Q48H PRN CONSTIPATION Magnesium Hydroxide 30 ml 03/25/20 14:54 Milk Of Magnesia - PO PRN PRN CONSTIPATION Melatonin 5 mg 03/25/20 22:00 03/26/20 22:33 Melatonin PO 5 mg HS ROSANNE Administration Methocarbamol 500 mg 03/25/20 14:54 Robaxin - PO 03/31/20 14:54 Q6H PRN MUSCLE SPASMS Nicotine 21 mg 03/25/20 16:15 03/26/20 10:14 Nicoderm Patch - TD Not Given DAILY [facility] Nicotine Polacrilex 2 mg 03/25/20 14:54 03/27/20 06:08 Nicorette Gum - BUC 2 mg Q2H PRN Administration NICOTINE REPLACEMENT RX Ondansetron HCl 4 mg 03/25/20 14:54 Zofran Odt - SL 03/31/20 14:55 Q8H PRN Nausea/Vomiting Multivit/Folic Acid/Iron 1 tab 03/26/20 10:00 03/26/20 10:14 Vitamins (Sjr) - PO 1 tab DAILY ROSANNE Administration Thiamine HCl 100 mg 03/25/20 22:00 03/26/20 22:33 Vitamin B1 - PO 100 mg HS ROSANNE Administration Last Vital Signs Temp Pulse Resp BP Pulse Ox 97.3 F L 57 L 18 112/75 100 03/27/20 05:58 03/27/20 05:58 03/27/20 05:58 03/27/20 05:58 03/27/20 05:58 Assessment: 03/27/20 09:55 1. Alcohol Detox, Day 3 (admitted 03/25/20). 2. Cocaine Detox Plan: 1. Alcohol Detox. Continue Librium Protocol (Day 3). Estimated discharge date 03/30.
[2020-03-27] MEDS: NICOTINE 21 MG/24 HOURS TOPICAL PATCH TD SCH (10:28)
[2020-03-27] MEDS: PRENATAL VITAMINS W/ FOLIC ACID TABLET (FP) PO SCH (10:28)
[2020-03-27] MEDS: THIAMINE HCL 100 MG TABLET (FP) PO SCH (22:29)
[2020-03-27] MEDS: MELATONIN 5 MG TABLETS PO SCH (22:30)
[2020-03-28] MEDS ORDERED: chlordiazePOXIDE HCL 10 MG CAPSULE PO PRN
[2020-03-28] MEDS: hydrOXYzine PAMOATE 25 MG CAPSULE (FP) PO SCH ×5 (05:23→22:20)
[2020-03-28] MEDS: chlordiazePOXIDE HCL 10 MG CAPSULE PO SCH ×4 (05:23→22:20)
[2020-03-28] MEDS: PRENATAL VITAMINS W/ FOLIC ACID TABLET (FP) PO SCH (10:43)
[2020-03-28] MEDS: NICOTINE 21 MG/24 HOURS TOPICAL PATCH TD SCH (10:44)
--- NOTE | 2020-03-28 12:11 | PN ---
S CIWA - CIWA Score Nausea/Vomitin-No Nausea/No Vomiting Muscle Tremors: None Anxiety: 3 Agitation: 0-Normal Activity Paroxysmal Sweats: 3 Orientation: 0-Oriented Tacttile Disturbances: 0-None Auditory Disturbances: 0-None Visual Disturbances: 0-None Headache: 2-Mild CIWA-Ar Total Score: 8 BHS Progress Note (SOAP) Subjective: c/o anxiety, sweats, and headache. Objective: 03/28/20 12:10 Vital Signs 03/28/20 03/28/20 06:36 08:56 Temperature 97.1 F L 97.1 F L Pulse Rate 67 72 Respiratory 18 18 Rate Blood Pressure 114/78 110/74 O2 Sat by Pulse 98 Oximetry (%) Laboratory Last Values WBC 4.9 K/mm3 (4.0-10.0) 03/25/20 14:50 RBC 4.62 M/mm3 (4.00-5.60) 03/25/20 14:50 Hgb 14.6 GM/dL (11.7-16.9) 03/25/20 14:50 Hct 43.4 % (35.4-49) 03/25/20 14:50 MCV 93.8 fl (80-96) 03/25/20 14:50 MCH 31.5 pg (25.7-33.7) 03/25/20 14:50 MCHC 33.6 g/dl (32.0-35.9) 03/25/20 14:50 RDW 14.4 % (11.9-15.9) 03/25/20 14:50 Plt Count 206 K/MM3 (134-434) 03/25/20 14:50 MPV 9.3 fl (7.5-11.1) D 03/25/20 14:50 Sodium 140 mmol/L (136-145) 03/25/20 14:50 Potassium 4.1 mmol/L (3.5-5.1) 03/25/20 14:50 Chloride 106 mmol/L (98-107) 03/25/20 14:50 Carbon Dioxide 28 mmol/L (21-32) 03/25/20 14:50 Anion Gap 7 MMOL/L (8-16) L 03/25/20 14:50 BUN 16.5 mg/dL (7-18) 03/25/20 14:50 Creatinine 1.1 mg/dL (0.55-1.3) 03/25/20 14:50 Est GFR (CKD-EPI)AfAm 84.71 03/25/20 14:50 Est GFR (CKD-EPI)NonAf 73.09 03/25/20 14:50 Random Glucose 103 mg/dL (74-106) 03/25/20 14:50 Calcium 9.1 mg/dL (8.5-10.1) 03/25/20 14:50 Total Bilirubin 0.5 mg/dL (0.2-1) 03/25/20 14:50 AST 31 U/L (15-37) 03/25/20 14:50 ALT 23 U/L (13-61) 03/25/20 14:50 Alkaline Phosphatase 86 U/L (45-117) 03/25/20 14:50 Total Protein 6.9 g/dl (6.4-8.2) 03/25/20 14:50 Albumin 3.4 g/dl (3.4-5.0) 03/25/20 14:50 Syphilis Serology Non-reactive (NONREACTIVE) 03/25/20 14:50 COVID-19 (SANDY) Not detected (Not Detected) 03/25/20 16:00 HIV Ag/Ab Combo Qual Negative (NEGATIVE) 03/26/20 09:00 Labs noted. Assessment: 03/28/20 12:10 AOX3 and in no acute respiratory distress. Full ROM, ambulating in the unit. Withdrawal symptoms. Plan: continue detox.
[2020-03-28] MEDS: NICOTINE POLACRILEX 2 MG GUM BUC PRN (14:17)
[2020-03-28] MEDS: THIAMINE HCL 100 MG TABLET (FP) PO SCH (22:20)
[2020-03-28] MEDS: MELATONIN 5 MG TABLETS PO SCH (22:20)
[2020-03-29] MEDS: chlordiazePOXIDE HCL 10 MG CAPSULE PO SCH ×2 (07:10→17:47)
[2020-03-29] MEDS: hydrOXYzine PAMOATE 25 MG CAPSULE (FP) PO SCH ×5 (07:10→21:19)
[2020-03-29] MEDS: NICOTINE POLACRILEX 2 MG GUM BUC PRN (10:23)
[2020-03-29] MEDS: NICOTINE 21 MG/24 HOURS TOPICAL PATCH TD SCH (10:23)
[2020-03-29] MEDS: PRENATAL VITAMINS W/ FOLIC ACID TABLET (FP) PO SCH (10:24)
--- NOTE | 2020-03-29 15:02 | PN ---
S CIWA - CIWA Score Nausea/Vomitin-No Nausea/No Vomiting Muscle Tremors: 2 Anxiety: 1-Mildly Anxious Agitation: 0-Normal Activity Paroxysmal Sweats: No Perspiration Orientation: 0-Oriented Tacttile Disturbances: 0-None Auditory Disturbances: 0-None Visual Disturbances: 1-Very Mild Sensitivity Headache: 0-None Present CIWA-Ar Total Score: 4 BHS Progress Note (SOAP) Subjective: 59 years old male admitted on 03/25/20 for alcohol withdrawal sx management treating with libreium detox regiment feeling better today less tremor mild anxiety discussing aftercare with staff mr kohli prefers to go to [facility] for alcohol recovery Objective: 03/29/20 15:06 Vital Signs - 24 hr 03/28/20 03/28/20 03/29/20 16:33 20:52 05:29 Temperature 97.3 F L 97.5 F L 97.3 F L Pulse Rate 81 86 70 Respiratory 18 18 18 Rate Blood Pressure 110/82 119/84 111/75 O2 Sat by Pulse 97 96 Oximetry (%) 03/29/20 03/29/20 08:30 12:45 Temperature 97.7 F 97.3 F L Pulse Rate 98 H 80 Respiratory 20 18 Rate Blood Pressure 115/90 112/73 O2 Sat by Pulse 98 Oximetry (%) Laboratory Tests 03/25/20 03/25/20 03/25/20 14:50 14:50 14:50 WBC 4.9 RBC 4.62 Hgb 14.6 Hct 43.4 MCV 93.8 MCH 31.5 MCHC 33.6 RDW 14.4 Plt Count 206 MPV 9.3 D Sodium 140 Potassium 4.1 Chloride 106 Carbon Dioxide 28 Anion Gap 7 L BUN 16.5 Creatinine 1.1 Est GFR (CKD-EPI)AfAm 84.71 Est GFR (CKD-EPI)NonAf 73.09 Random Glucose 103 Calcium 9.1 Total Bilirubin 0.5 AST 31 ALT 23 Alkaline Phosphatase 86 Total Protein 6.9 Albumin 3.4 Syphilis Serology Non-reactive COVID-19 (SANDY) HIV Ag/Ab Combo Qual 03/25/20 03/26/20 03/27/20 16:00 09:00 18:44 WBC RBC Hgb Hct MCV MCH MCHC RDW Plt Count MPV Sodium Potassium Chloride Carbon Dioxide Anion Gap BUN Creatinine Est GFR (CKD-EPI)AfAm Est GFR (CKD-EPI)NonAf Random Glucose Calcium Total Bilirubin AST ALT Alkaline Phosphatase Total Protein Albumin Syphilis Serology COVID-19 (SANDY) Not detected Not detected HIV Ag/Ab Combo Qual Negative lab noted Assessment: 03/29/20 15:06 alcohol withdrawal Plan: librim regiment
[2020-03-29] MEDS: THIAMINE HCL 100 MG TABLET (FP) PO SCH (21:18)
[2020-03-29] MEDS: MELATONIN 5 MG TABLETS PO SCH (21:19)
[2020-03-30] MEDS ORDERED: chlordiazePOXIDE HCL 10 MG CAPSULE PO ONE (05:00)
[2020-03-30] MEDS: hydrOXYzine PAMOATE 25 MG CAPSULE (FP) PO SCH ×2 (05:36→09:33)
--- NOTE | 2020-03-30 08:06 | DS ---
[facility] Detox Discharge Summary Admission Date: 03/25/20 Discharge Date: 03/30/20 - History Present History: Alcohol Dependence Additional Comments: 59 years old male admitted on 03/25/20 for alcohol withdrawal sx management treating with librium detox regiment mr kohli has completed the librium regiment and is tolerated well General Appearance: Yes: No Apparent Distress HEENTM: Yes: EOMI, Normocephalic, VALERIE Respiratory: Yes: Lungs Clear, No Respiratory Distress, No Accessory Muscle Use Neck: Yes: Supple Cardiology: Yes: Regular Rhythm, Regular Rate, S1, S2 Abdominal: Yes: Normal Bowel Sounds, Non Tender, Flat, Soft Musculoskeletal: Yes: Within Normal Limits, full range of Motion Extremities: Yes: Within Normal Limits, Normal Range of Motion Neurological: Yes: Alert, Motor Strength 5/5, Normal Mood/Affect Integumentary: Yes: Dry, Warm Pertinent Past History: time for discharge 35 minutes - Physical Exam Results Vital Signs: Vital Signs Temperature 97.7 F 03/30/20 06:55 Pulse Rate 70 03/30/20 06:55 Respiratory Rate 18 03/30/20 06:55 Blood Pressure 110/71 03/30/20 06:55 O2 Sat by Pulse Oximetry (%) 100 03/30/20 06:55 Pertinent Admission Physical Exam Findings: alcohol withdrawal Laboratory Tests 03/25/20 03/25/20 03/25/20 14:50 14:50 14:50 WBC 4.9 RBC 4.62 Hgb 14.6 Hct 43.4 MCV 93.8 MCH 31.5 MCHC 33.6 RDW 14.4 Plt Count 206 MPV 9.3 D Sodium 140 Potassium 4.1 Chloride 106 Carbon Dioxide 28 Anion Gap 7 L BUN 16.5 Creatinine 1.1 Est GFR (CKD-EPI)AfAm 84.71 Est GFR (CKD-EPI)NonAf 73.09 Random Glucose 103 Calcium 9.1 Total Bilirubin 0.5 AST 31 ALT 23 Alkaline Phosphatase 86 Total Protein 6.9 Albumin 3.4 Syphilis Serology Non-reactive COVID-19 (SANDY) HIV Ag/Ab Combo Qual 03/25/20 03/26/20 03/27/20 16:00 09:00 18:44 WBC RBC Hgb Hct MCV MCH MCHC RDW Plt Count MPV Sodium Potassium Chloride Carbon Dioxide Anion Gap BUN Creatinine Est GFR (CKD-EPI)AfAm Est GFR (CKD-EPI)NonAf Random Glucose Calcium Total Bilirubin AST ALT Alkaline Phosphatase Total Protein Albumin Syphilis Serology COVID-19 (SANDY) Not detected Not detected HIV Ag/Ab Combo Qual Negative lab noted - Treatment Hospital Course: Detox Protocol Followed, Detoxed Safely, Responded well, Discharged Condition Good, Rehab Referral Accepted Patient has Accepted a Rehab Referral to: [facility] alcohol rehab - Medication Discharge Medications: Ambulatory Orders hydrOXYzine PAMOATE [Vistaril -] 50 mg PO HS 12/06/17 Aripiprazole [Abilify -] 10 mg PO DAILY #30 tablet 12/07/17 Mirtazapine [Remeron -] 7.5 mg PO HS #30 tablet 12/07/17 Albuterol Sulfate Inhaler - [Ventolin HFA Inhaler -] 2 inh PO Q4H PRN 03/25/20 - Diagnosis (1) Alcohol dependence with uncomplicated withdrawal Status: Acute (2) Substance induced mood disorder Status: Suspected (3) Alcohol dependence with uncomplicated withdrawal Status: Acute (4) Asthma Status: Chronic Qualifiers: Asthma severity: mild Asthma persistence: unspecified Asthma complication type: unspecified Qualified Code(s): J45.909 - Unspecified asthma, uncomplicated (5) Nicotine dependence Status: Acute Qualifiers: Nicotine product type: cigarettes Substance use status: in withdrawal Qualified Code(s): F17.213 - Nicotine dependence, cigarettes, with withdrawal - AMA Did Patient Leave Against Medical Advice: No CIWA Score - CIWA Score Nausea/Vomitin-No Nausea/No Vomiting Muscle Tremors: 2 Anxiety: 0-No Anxiety, at Ease Agitation: 0-Normal Activity Paroxysmal Sweats: No Perspiration Orientation: 0-Oriented Tacttile Disturbances: 0-None Auditory Disturbances: 0-None Visual Disturbances: 0-None Headache: 0-None Present CIWA-Ar Total Score: 2
[2020-03-30 09:31] VITALS: BP 117/81; PULSE 78; TEMP 97.1
[2020-03-30] MEDS: PRENATAL VITAMINS W/ FOLIC ACID TABLET (FP) PO SCH (09:33)
[2020-03-30] MEDS: NICOTINE 21 MG/24 HOURS TOPICAL PATCH TD SCH (09:33)
== END 2020-03-30 09:32 | disposition home or self-care (01) | DRG 774 ==
LOC: YASAS 12:09 → Y3N 15:50
PROVIDERS: ADMIT Allergy & Immunology; ATTEND Allergy & Immunology
PROC: HZ2ZZZZ Detoxification Services for Substance Abuse Treatment (ICD-10-PCS; principal; 2020-03-25)
DX: F10.230 Alcohol dependence with withdrawal, uncomplicated (principal); F14.20 Cocaine dependence, uncomplicated; F17.210 Nicotine dependence, cigarettes, uncomplicated; F19.24 Other psychoactive substance dependence with psychoactive substance-induced mood disorder; J45.909 Unspecified asthma, uncomplicated; K21.9 Gastro-esophageal reflux disease without esophagitis
CPT/HCPCS: 36415; 80053; 85027; 86780; 87389; U0003

== ENCOUNTER 2022-09-15 17:15 | Inpatient (IN) | payer OTHER ==
[2022-09-15 18:00] VITALS: BMI 24.7
[2022-09-15] MEDS ORDERED: P-EPHED 60MG/TRIPROLIDI 2.5MG TABLET PO PRN (19:36)
[2022-09-15] MEDS ORDERED: POLYETHYLENE GLYCOL (HEALTHYLAX) 3350 17 GM PACKET PO PRN (19:36)
[2022-09-15] MEDS ORDERED: MAGNESIUM HYDROX 2400MG/30ML ORAL SUSPENSION 30 ML CUP PO PRN (19:36)
[2022-09-15] MEDS ORDERED: BISMUTH SUBSALICYLATE 524 MG/30 ML PO PRN (19:36)
[2022-09-15] MEDS ORDERED: METHOCARBAMOL 500 MG TABLET PO PRN (19:36)
[2022-09-15] MEDS ORDERED: hydrOXYzine PAMOATE 25 MG CAPSULE (FP) PO PRN (19:36)
[2022-09-15] MEDS ORDERED: guaiFENesin 200 MG/10 ML 10 ML UNIT-DOSE CUPS PO PRN (19:36)
[2022-09-15] MEDS ORDERED: ONDANSETRON *ODT* 4 MG TABLET SL PRN (19:36)
[2022-09-15] MEDS ORDERED: MAG HYDROX/AL HYDROX/SIMETH 30 ML UNIT-DOSE CUP PO PRN (19:36)
[2022-09-15] MEDS ORDERED: IBUPROFEN 400 MG TABLET (FP) PO PRN (19:36)
[2022-09-15] MEDS ORDERED: DICYCLOMINE HCL 10 MG CAPSULE PO PRN (19:36)
[2022-09-15] MEDS ORDERED: NALOXONE HCL (KLOXXADO) 8 MG SPRAY NS PRN (19:36)
[2022-09-15] MEDS ORDERED: BENZOCAINE/MENTHOL (CHLORASEPTIC ) LOZENGE MM PRN (19:36)
[2022-09-15] MEDS ORDERED: ACETAMINOPHEN 325 MG TABLET (FP) PO PRN ×2 (19:36)
[2022-09-15] MEDS ORDERED: LOPERAMIDE HCL 2 MG CAPSULE PO PRN (19:36)
[2022-09-15] MEDS ORDERED: IBUPROFEN 600 MG TABLET (FP) PO PRN (19:36)
[2022-09-15] MEDS ORDERED: MELATONIN 5 MG TABLETS PO SCH (22:00)
[2022-09-15] MEDS ORDERED: THIAMINE HCL 100 MG TABLET (FP) PO SCH (22:00)
[2022-09-16 09:36] VITALS: BP 97/61; PULSE 78; RESP 16; TEMP 97.8
[2022-09-16] MEDS ORDERED: PRENATAL VITAMINS W/ FOLIC ACID TABLET (FP) PO SCH (10:00)
[2022-09-16] MEDS: NICOTINE 14 MG/24 HOURS TOPICAL PATCH TD SCH ×2 (10:35→10:45)
[2022-09-16 13:46] LABS: HEMATOCRIT 39.1 % (35.4-49); HEMOGLOBIN 13.2 GM/dL (11.7-16.9); MCH 31.1 pg (25.7-33.7); MCHC 33.7 g/dl (32.0-35.9); MEAN CELL VOLUME 92.3 fl (80-96); MEAN PLT VOLUME 9.2 fl (7.5-11.1); PLATELET COUNT 226 10^3/uL (134-434); RBC 4.24 M/mm3 (4.00-5.60); RDW 13.4 % (11.9-15.9); WHITE BLOOD COUNT 5.2 K/mm3 (4.0-10.0)
[2022-09-16 13:54] LABS: ALBUMIN 3.2 g/dl (3.4-5.0)
[2022-09-16 13:58] LABS: BILIRUBIN,TOTAL 0.6 mg/dL (0.2-1); TOT PROT 6.2 g/dl (6.4-8.2)
[2022-09-16] MEDS ORDERED: hydrOXYzine PAMOATE 50 MG CAPSULE (FP) PO SCH (22:00)
[2022-09-16] MEDS ORDERED: MIRTAZAPINE 15 MG TABLET (FP) PO SCH (22:00)
[2022-09-17] MEDS ORDERED: ARIPiprazole 10 MG TABLET PO SCH (10:00)
== END 2022-09-16 13:18 | disposition other institution (70) | DRG 774 ==
LOC: YASAS 17:15 → Y3N 20:41 → UNDOADMIN 20:41 → Y3N 21:41 → UNDODISIN 09-16 13:18
PROVIDERS: ADMIT Allergy & Immunology; ATTEND Family Medicine
PROC: HZ2ZZZZ Detoxification Services for Substance Abuse Treatment (ICD-10-PCS; principal; 2022-09-15)
DX: F10.230 Alcohol dependence with withdrawal, uncomplicated (principal); F14.20 Cocaine dependence, uncomplicated; F12.20 Cannabis dependence, uncomplicated; F17.210 Nicotine dependence, cigarettes, uncomplicated; F20.0 Paranoid schizophrenia; F19.24 Other psychoactive substance dependence with psychoactive substance-induced mood disorder; H40.9 Unspecified glaucoma; J45.20 Mild intermittent asthma, uncomplicated; K21.9 Gastro-esophageal reflux disease without esophagitis; M54.50 Low back pain, unspecified; G89.29 Other chronic pain; R63.8 Other symptoms and signs concerning food and fluid intake; Z56.0 Unemployment, unspecified
CPT/HCPCS: 36415; 80053; 85027; 86780; C9803-CS; U0003; U0005

== ENCOUNTER 2022-09-16 13:28 | Inpatient (IN) | payer OTHER ==
[2022-09-16 13:42] VITALS: RESP 18
[2022-09-16] MEDS ORDERED: BENZOCAINE/MENTHOL (CHLORASEPTIC ) LOZENGE MM PRN (15:27)
[2022-09-16] MEDS ORDERED: P-EPHED 60MG/TRIPROLIDI 2.5MG TABLET PO PRN (15:27)
[2022-09-16] MEDS ORDERED: guaiFENesin 200 MG/10 ML 10 ML UNIT-DOSE CUPS PO PRN (15:27)
[2022-09-16] MEDS ORDERED: POLYETHYLENE GLYCOL (HEALTHYLAX) 3350 17 GM PACKET PO PRN (15:27)
[2022-09-16] MEDS ORDERED: LOPERAMIDE HCL 2 MG CAPSULE PO PRN (15:27)
[2022-09-16] MEDS ORDERED: NICOTINE 10 MG CARTRIDGE (INHALER) IH PRN (15:27)
[2022-09-16] MEDS ORDERED: MAG HYDROX/AL HYDROX/SIMETH 30 ML UNIT-DOSE CUP PO PRN (15:27)
[2022-09-16] MEDS ORDERED: IBUPROFEN 400 MG TABLET (FP) PO PRN (15:27)
[2022-09-16] MEDS ORDERED: hydrOXYzine PAMOATE 25 MG CAPSULE (FP) PO PRN (15:27)
[2022-09-16] MEDS ORDERED: MAGNESIUM HYDROX 2400MG/30ML ORAL SUSPENSION 30 ML CUP PO PRN (15:27)
[2022-09-16] MEDS ORDERED: ACETAMINOPHEN 325 MG TABLET (FP) PO PRN (15:27)
[2022-09-16] MEDS ORDERED: ALBUTEROL SO4 HFA INHALER IH PRN (15:28)
[2022-09-16] MEDS: MELATONIN 5 MG TABLETS PO SCH (21:19)
[2022-09-16] MEDS: MIRTAZAPINE 15 MG TABLET (FP) PO SCH (21:19)
[2022-09-16] MEDS: THIAMINE HCL 100 MG TABLET (FP) PO SCH (21:19)
[2022-09-17] MEDS: PRENATAL VITAMINS W/ FOLIC ACID TABLET (FP) PO SCH (09:55)
[2022-09-17] MEDS: ARIPiprazole 10 MG TABLET PO SCH (09:55)
[2022-09-17] MEDS: NICOTINE 14 MG/24 HOURS TOPICAL PATCH TD SCH (09:55)
[2022-09-17] MEDS: MIRTAZAPINE 15 MG TABLET (FP) PO SCH (21:31)
[2022-09-17] MEDS: MELATONIN 5 MG TABLETS PO SCH (21:31)
[2022-09-17] MEDS: THIAMINE HCL 100 MG TABLET (FP) PO SCH (21:31)
[2022-09-18] MEDS: ARIPiprazole 10 MG TABLET PO SCH (09:22)
[2022-09-18] MEDS: PRENATAL VITAMINS W/ FOLIC ACID TABLET (FP) PO SCH (09:22)
[2022-09-18] MEDS: NICOTINE 14 MG/24 HOURS TOPICAL PATCH TD SCH (09:22)
[2022-09-18] MEDS: MIRTAZAPINE 15 MG TABLET (FP) PO SCH (21:15)
[2022-09-18] MEDS: THIAMINE HCL 100 MG TABLET (FP) PO SCH (21:15)
[2022-09-18] MEDS: MELATONIN 5 MG TABLETS PO SCH (21:15)
[2022-09-19] MEDS: PRENATAL VITAMINS W/ FOLIC ACID TABLET (FP) PO SCH (10:01)
[2022-09-19] MEDS: NICOTINE 14 MG/24 HOURS TOPICAL PATCH TD SCH (10:01)
[2022-09-19] MEDS: MIRTAZAPINE 15 MG TABLET (FP) PO SCH (21:23)
[2022-09-19] MEDS: THIAMINE HCL 100 MG TABLET (FP) PO SCH (21:23)
[2022-09-19] MEDS: MELATONIN 5 MG TABLETS PO SCH (21:24)
[2022-09-20] MEDS: NICOTINE 14 MG/24 HOURS TOPICAL PATCH TD SCH (10:11)
[2022-09-20] MEDS: PRENATAL VITAMINS W/ FOLIC ACID TABLET (FP) PO SCH (10:11)
[2022-09-20] MEDS: THIAMINE HCL 100 MG TABLET (FP) PO SCH (21:11)
[2022-09-20] MEDS: MELATONIN 5 MG TABLETS PO SCH (21:12)
[2022-09-20] MEDS: MIRTAZAPINE 15 MG TABLET (FP) PO SCH (21:12)
[2022-09-21 07:08] VITALS: PULSE 75
[2022-09-21] MEDS: NICOTINE 14 MG/24 HOURS TOPICAL PATCH TD SCH (09:50)
[2022-09-21] MEDS: PRENATAL VITAMINS W/ FOLIC ACID TABLET (FP) PO SCH (09:50)
[2022-09-21] MEDS: MIRTAZAPINE 15 MG TABLET (FP) PO SCH (21:04)
[2022-09-21] MEDS: MELATONIN 5 MG TABLETS PO SCH (21:05)
[2022-09-21] MEDS: THIAMINE HCL 100 MG TABLET (FP) PO SCH (21:05)
[2022-09-22 06:54] VITALS: BP 107/73; TEMP 97.8
[2022-09-22] MEDS: PRENATAL VITAMINS W/ FOLIC ACID TABLET (FP) PO SCH (09:48)
[2022-09-22] MEDS: NICOTINE 14 MG/24 HOURS TOPICAL PATCH TD SCH (09:49)
== END 2022-09-22 10:15 | disposition home or self-care (01) | DRG 772 ==
LOC: YASAS 13:28 → Y5N 13:29
PROVIDERS: ADMIT Allergy & Immunology; ATTEND Psychiatry & Neurology Pain Medicine
PROC: HZ42ZZZ Group Counseling for Substance Abuse Treatment, Cognitive-Behavioral (ICD-10-PCS; principal; 2022-09-16)
DX: F10.20 Alcohol dependence, uncomplicated (principal); F14.20 Cocaine dependence, uncomplicated; F17.210 Nicotine dependence, cigarettes, uncomplicated; F20.9 Schizophrenia, unspecified; F19.24 Other psychoactive substance dependence with psychoactive substance-induced mood disorder; F32.A Depression, unspecified; J45.909 Unspecified asthma, uncomplicated